=== PATIENT | female | born 1985 | race Caucasian/White ===

== ENCOUNTER 2019-06-26 05:31 | Inpatient (IN) | payer OTHER ==
[2019-06-26] MEDS ORDERED: AMPICILLIN/NS 2 GM/100 ML 2 GM/100 ML BAG IV ONE (07:07)
[2019-06-26] MEDS ORDERED: SUBLIMAZE IV PRN ×2 (07:12→08:51)
[2019-06-26] MEDS ORDERED: STADOL IV PRN (07:12)
[2019-06-26 07:30] LABS: Hematocrit 42.5 % (30.3-42.9); Hemoglobin 13.9 gm/dl (10.1-14.3); Mean Corpuscular HGB Conc 33 % (30-34); Mean Corpuscular Volume 86 fl (79-97); Platelet Count 117 K/mm3 (140-440); Red Blood Count 4.96 M/mm3 (3.65-5.03); Red Cell Distribution Width 17.4 % (13.2-15.2)
[2019-06-26] MEDS ORDERED: LACTATED RINGERS 1,000 ML IV SCH ×2 (08:00→09:00)
[2019-06-26] MEDS ORDERED: BRETHINE SUB-Q PRN (08:51)
[2019-06-26] MEDS ORDERED: XYLOCAINE 2% INFILTRATI ONE (08:51)
[2019-06-26] MEDS ORDERED: PITOCin/NS 20 UNIT/1000ML DRIP 20 UNITS/1,000 ML BAG IV SCH (09:00)
--- NOTE | 2019-06-26 09:14 | History and Physical Report ---
History of Present Illness Date of examination: 06/26/19 Date of admission: 06/26/2019 Chief complaint: Active labor History of present illness: 33 yo, @ 39.4 wks gestation. Initated care with [facility] at 7.6 wks. She was co-managed by [facility] secondary to hypothyroidism. Her was complicated by hypothyroidism and anemia. Presented to [facility] with reports of regular painful ctxs for past several hours. Reports + FM, denies VB or LOF. She desires BTL, consent was signed on 03/29/19. Labs: O+, antibody negative; Rubella immune; VDRL non-reactive; HBsAg negative; HIV negative; GC/Chlamydia/Trich negative; Varicella immune; HSVII negative; 1 hr gtt - 118; GBS positive Past History Past Medical History: other (Hypothyroidism) Past Surgical History: no surgical history Family/Genetic History: none Social history: , lives with family, full code. denies: smoking, alcohol abuse, prescription drug abuse, IV drug use - Obstetrical History Expected Date of Delivery: 06/29/19 Actual Gestation: 39 Week(s) 4 Day(s) : 3 Para: 2 Hx # Term Pregnancies: 2 Number of Pregnancies: 0 Spontaneous Abortions: 0 Induced : 0 Number of Living Children: 2 #1 Infant Gender: Female year: Method of Delivery: Vaginal Complications: none #2 Infant Gender: Female year: Method of Delivery: Vaginal Complications: none Medications and Allergies Allergies Allergy/AdvReac Type Severity Reaction Status Date / Time No Known Allergies Allergy Verified 03/30/15 04:09 Home Medications Medication Instructions Recorded Confirmed Last Taken Type Levothyroxine [Synthroid] 75 mcg PO QAM 03/31/15 03/31/15 03/30/15 06:00 History 0.75mgs Ibuprofen [Motrin 600 MG tab] 600 mg PO Q6HR PRN #30 tablet 04/01/15 Unknown Rx Docusate Sodium [Colace] 100 mg PO BID PRN #30 capsule 10/14/16 Unknown Rx Ferrous Sulfate [Feosol 325 MG tab] 325 mg PO TID PRN #60 tablet 10/14/16 Unknown Rx Ibuprofen [Motrin 600 MG tab] 600 mg PO Q6H PRN #30 tablet 10/14/16 Unknown Rx Active Meds: Active Medications Butorphanol Tartrate (Stadol) 2 mg IV Q2H PRN PRN Reason: Labor Pain Stop: 06/26/19 23:59 Ephedrine Sulfate (Ephedrine Sulfate) 10 mg IV Q2M PRN PRN Reason: Hypotension Fentanyl (Sublimaze) 100 mcg IV Q2H PRN PRN Reason: Labor Pain Ampicillin Sodium (Ampicillin/Ns 1 Gm/50 Ml) 1 gm in 50 mls @ 100 mls/hr IV Q4HR JUDSON; Protocol Oxytocin/Sodium Chloride (Pitocin/Ns 20 Unit/1000ml Drip) 20 units in 1,000 mls @ 125 mls/hr IV DIRECT JUDSON Lactated Ringer's (Lactated Ringers) 1,000 mls @ 125 mls/hr IV DIRECT JUDSON Mineral Oil (Mineral Oil) 30 ml PO QHS PRN PRN Reason: Constipation Terbutaline Sulfate (Brethine) 0.25 mg SUB-Q ONCE PRN PRN Reason: Hyperstimulation/Hypertonicity Review of Systems All systems: negative Genitourinary: contractions (painful and regular) - Vital Signs Vital signs: Vital Signs Pulse BP 85 110/72 06/26/19 05:47 06/26/19 05:47 Temp Pulse Resp BP Pulse Ox 85 98/73 06/26/19 07:20 06/26/19 07:20 - Physical Exam Breasts: Positive: deferred Cardiovascular: Regular rate Lungs: Positive: Normal air movement Abdomen: Positive: other (gravid) Genitourinary (Female): Positive: normal external genitalia, normal perenium Uterus: Positive: other (S=D) Extremities: Positive: normal Deep Tendon Reflex Grade: Normal +2 - Obstetrical FHR: category 1 Uterine Contraction Monitor Mode: External Cervical Dilatation: 8 (with bulging bag) Cervical Effacement Percentage: 90 station: -2 Uterine Contraction Frequency (min): 3-4 Uterine Contraction Pattern: Regular Uterine Tone Measurement Phase: Resting Uterine Contraction Intensity: Strong/Firm Results Result Diagrams: 06/26/19 05:30 Abnormal lab results 06/26/19 Range/Units 05:30 RDW 17.4 H (13.2-15.2) % Plt Count 117 L (140-440) K/mm3 All other labs normal. Assessment and Plan - Patient Problems (1) 39 weeks gestation of Current Visit: Yes Status: Acute (2) Active labor at term Current Visit: Yes Status: Acute Plan to address problem: Admit to L & D Expectant management Pain medication as desired Anticipate (3) Hypothyroidism Current Visit: Yes Status: Acute (4) Group beta Strep positive Current Visit: Yes Status: Acute Plan to address problem: GBS prophylaxis per protocol
[2019-06-26] MEDS ORDERED: NARCAN 2 MG/2 ML IV PRN (10:42)
--- NOTE | 2019-06-26 10:44 | Anesthesia Consultation ---
Anesthesia Consult and Med Hx Date of service: 06/26/19 - Airway Anesthetic Teeth Evaluation: Good ROM Head & Neck: Adequate Mental/Hyoid Distance: Adequate Mallampati Class: Class II Intubation Access Assessment: Probably Good - Pulmonary Exam CTA: Yes - Cardiac Exam Cardiac Exam: RRR - Pre-Operative Health Status ASA Pre-Surgery Classification: ASA2 Proposed Anesthetic Plan: Epidural - Pulmonary Hx Smoking: No Hx Asthma: No Hx Respiratory Symptoms: No SOB: No COPD: No Home Oxygen Therapy: No Hx Pneumonia: No Hx Sleep Apnea: No - Cardiovascular System Hx Hypertension: No Hx Coronary Artery Disease: No Hx Heart Attack/AMI: No Hx Angina: No Hx Percutaneous Transluminal Coronary Angioplasty (PTCA): No Hx Cardia Arrhythmia: No Hx Pacemaker: No Hx Internal Defibrillator: No Hx Valvular Heart Disease: No Hx Heart Murmur: No Hx Peripheral Vascular Disease: No - Central Nervous System Hx Neuromuscular Disorder: No Hx Seizures: No CVA: No Hx Back Pain: No Hx Psychiatric Problems: No - Gastrointestinal Hx Ulcer: No Hx Gastroesophageal Reflux Disease: No - Endocrine Hx Renal Disease: No Hx End Stage Renal Disease: No Hx Cirrhosis: No Hx Liver Disease: No Hx Insulin Dependent Diabetes: No Hx Non-Insulin Dependent Diabetes: No Hx Thyroid Disease: No Hx Hypothyroidism: No Hx Hyperthyroidism: No - Hematic Hx Anemia: No Hx Sickle Cell Disease: No - Other Systems Hx Alcohol Use: No Hx Substance Use: No Hx Cancer: No Hx Obesity: Yes (35.8)
[2019-06-26] MEDS ORDERED: fentaNYL-BUPIV 2 MCG/ML-0.125% 200 MCG/100 ML BAG EPIDURAL SCH (11:00)
[2019-06-26] MEDS: AMPICILLIN/NS 1 GM/50 ML 1 GM/50 ML BAG IV SCH ×2 (11:15→16:57)
[2019-06-26] MEDS ORDERED: LIDOCAINE 1.5%/EPI 1:200,000 INFILTRATI ONE (12:26)
--- NOTE | 2019-06-26 14:11 | Event Note ---
Date: 06/26/19 (1400) Pt resting comfortably with epidural. Ctxs have spaced out to approx q 4-7 mins. AROM of meconium stained fluid @ 1400, tolerated well. Will start Pitocin @ 2 mu/min, increase by 2 mu/min q 30 mins.
[2019-06-26] MEDS ORDERED: PITOCin/NS 30 UNIT/500ML 30,000 MILLIUNITS/500 ML BAG IV ONE (14:12)
[2019-06-26] MEDS ORDERED: MARCAINE 0.25% INFILTRATI ONE (15:13)
[2019-06-26] MEDS ORDERED: ZOFRAN IV PRN ×2 (16:41→20:01)
[2019-06-26] MEDS ORDERED: GENTAMICIN/NS 80 MG/100 ML 100 ML IV SCH (20:00)
[2019-06-26] MEDS ORDERED: TUCKS PAD TP PRN (20:01)
[2019-06-26] MEDS ORDERED: PHENERGAN PO PRN (20:01)
[2019-06-26] MEDS ORDERED: LANSINOH TP PRN (20:01)
[2019-06-26] MEDS ORDERED: PERCOCET 5/325 PO PRN (20:01)
[2019-06-26] MEDS ORDERED: DULCOLAX PR PRN (20:01)
[2019-06-26] MEDS ORDERED: MILK OF MAGNESIA PO PRN (20:01)
[2019-06-26] MEDS ORDERED: BENADRYL PO PRN (20:01)
--- NOTE | 2019-06-26 20:11 | Procedure Note ---
OB Delivery Note - Delivery Date of Delivery: 06/26/19 (1935) Surgeon: MARISOL NAVA (CNM) Estimated blood loss: 200cc - Vaginal Delivery position: OA (JOSE) Intrapartum events: meconium Delivery induction: none Delivery augmentation: rupture of membranes, pitocin Delivery monitor: external FHT, external uterine Route of delivery: Delivery placenta: spontaneous (1950) Delivery cord: nuchal cord (x1, manually reduced on perineum) Episiotomy: none Delivery laceration: none Anesthesia: epidural Delivery comments: of viable quiet active infant, placed immediately to maternal abdomen. NICU arrived to room 30 secs after delivery to assess secondary to meconium stained fluid. Cord double clamped and cut after 1.5 mins, and handed over to NICU team for further evaluation. Placenta spontaneously delivered, larry, disposed per hospital policy. Uterus firm at U-2, hemostasis maintained. Perineum intact. NICU completed evaluation, and handed baby over to FOB. Mother and baby stable and safe. - Infant A at 1 minute: 8 at 5 minutes: 9 Infant Gender: Female (Weight: 4341 gms (9 lbs 9 ozs) 20.5 inches)
[2019-06-26] MEDS: IBUPROFEN PO SCH (20:22)
[2019-06-26] MEDS ORDERED: GENTAMICIN/NS 120MG/100ML 120 MG/100 ML BAG IV SCH (21:00)
[2019-06-26] MEDS ORDERED: SODIUM CHLORIDE FLUSH SYRINGE 10 ML IV NR (21:00)
[2019-06-26] MEDS ORDERED: MINERAL OIL PO PRN (22:00)
[2019-06-26] MEDS ORDERED: GENTAMICIN IV SCH (22:00)
[2019-06-27] MEDS: IBUPROFEN PO SCH ×3 (02:05→16:29)
[2019-06-27] MEDS: SYNTHROID PO SCH (05:51)
[2019-06-27 08:38] LABS: Hemoglobin 13.4 gm/dl (10.1-14.3)
[2019-06-27] MEDS: PRENATAL VITAMIN PO SCH (10:28)
[2019-06-27] MEDS: FEOSOL PO SCH (10:28)
--- NOTE | 2019-06-27 10:30 | Progress Note ---
Assessment and Plan A: PP Day #1 Hypothyroidism Right leg weakness P: Follow Routine Orders Anesthesia Consult Subjective - Subjective Date of service: 06/27/19 Patient reports: appetite normal, voiding normally, pain well controlled, flatus, ambulating normally, other (Right leg feels weak and numb) : doing well Objective - Vital Signs Latest vital signs: Vital Signs Temp Pulse Resp BP BP Pulse Ox 06/27/19 08:32 97.7 F 57 L 18 105/62 99 06/27/19 04:25 71 L 06/27/19 04:14 97.5 F L 56 L 20 113/69 98 06/26/19 23:45 98 06/26/19 23:05 98.3 F 63 18 101/48 06/26/19 22:18 68 101/51 06/26/19 22:03 80 101/59 06/26/19 22:00 98.9 F 06/26/19 21:48 58 L 113/62 06/26/19 21:43 16 06/26/19 21:34 72 116/63 06/26/19 21:22 15 06/26/19 21:18 88 108/59 06/26/19 21:03 85 131/64 06/26/19 21:00 98.8 F 06/26/19 20:48 86 127/66 06/26/19 20:36 95 H 99 06/26/19 20:33 71 132/72 06/26/19 20:31 65 100 06/26/19 20:26 81 98 06/26/19 20:22 16 06/26/19 20:21 78 98 06/26/19 20:16 92 H 99 06/26/19 20:11 82 99 06/26/19 20:06 83 99 06/26/19 20:05 86 130/82 06/26/19 20:01 82 99 06/26/19 20:00 99.3 F 06/26/19 19:52 78 120/79 06/26/19 19:30 99.4 F 06/26/19 19:05 97 H 119/63 06/26/19 18:06 95 H 111/74 06/26/19 18:05 99.2 F 94 H 90 06/26/19 18:03 91 H 98 06/26/19 17:57 99 H 97 06/26/19 17:53 90 06/26/19 17:52 103 H 96 06/26/19 17:47 108 H 87 06/26/19 17:46 92 H 84 06/26/19 17:42 135 H 99 06/26/19 17:37 94 H 100 06/26/19 17:32 95 H 100 06/26/19 17:27 89 100 06/26/19 17:22 103 H 100 06/26/19 17:17 102 H 100 06/26/19 17:12 95 H 100 06/26/19 17:07 95 H 100 06/26/19 17:05 98 H 119/85 06/26/19 17:02 99 H 100 06/26/19 16:57 97 H 100 06/26/19 16:52 107 H 100 06/26/19 16:47 105 H 100 06/26/19 16:42 106 H 99 06/26/19 16:37 113 H 100 06/26/19 16:32 84 100 06/26/19 16:27 84 100 06/26/19 16:22 96 H 100 06/26/19 16:17 90 100 06/26/19 16:12 99 H 100 06/26/19 16:07 100 H 99 06/26/19 16:06 100 H 113/76 06/26/19 16:02 97 H 100 06/26/19 15:57 95 H 100 06/26/19 15:52 88 100 06/26/19 15:47 84 100 06/26/19 15:42 83 100 06/26/19 15:37 86 100 06/26/19 15:32 82 100 06/26/19 15:27 84 100 06/26/19 15:22 87 100 06/26/19 15:17 85 100 06/26/19 15:15 81 105/63 06/26/19 15:12 82 100 06/26/19 15:07 79 100 06/26/19 15:06 80 109/65 06/26/19 15:02 76 100 06/26/19 14:57 90 98 06/26/19 14:52 91 H 99 06/26/19 14:47 79 99 06/26/19 14:42 78 99 06/26/19 14:37 89 98 06/26/19 14:32 87 98 06/26/19 14:27 78 98 06/26/19 14:22 81 98 06/26/19 14:17 78 99 06/26/19 14:12 80 98 06/26/19 14:07 83 98 06/26/19 14:04 89 90 06/26/19 14:02 89 99 06/26/19 14:01 76 110/69 06/26/19 13:59 82 107/69 06/26/19 13:57 66 110/66 99 06/26/19 13:55 71 106/68 06/26/19 13:53 71 113/71 06/26/19 13:52 69 99 06/26/19 13:51 83 111/66 06/26/19 13:49 91 H 111/65 06/26/19 13:47 75 114/68 98 06/26/19 13:45 67 114/71 06/26/19 13:43 66 110/67 06/26/19 13:42 66 99 06/26/19 13:41 66 109/69 06/26/19 13:39 80 108/69 06/26/19 13:37 65 108/72 99 06/26/19 13:35 68 109/71 06/26/19 13:33 73 110/70 06/26/19 13:32 83 100 06/26/19 13:31 74 109/69 06/26/19 13:29 79 113/77 06/26/19 13:27 77 109/70 100 06/26/19 13:25 82 105/66 06/26/19 13:23 75 108/66 06/26/19 13:22 87 100 06/26/19 13:21 76 106/66 06/26/19 13:19 80 110/64 06/26/19 13:17 79 108/71 98 06/26/19 13:15 100 H 106/72 06/26/19 13:13 85 106/71 06/26/19 13:12 69 100 06/26/19 13:11 72 105/69 06/26/19 13:09 80 99/67 06/26/19 13:07 74 100/62 100 06/26/19 13:05 71 101/58 06/26/19 13:03 101 H 99/56 06/26/19 13:02 98 H 100 06/26/19 13:01 87 96/56 06/26/19 12:59 69 98/55 06/26/19 12:57 82 97/53 99 06/26/19 12:55 73 105/58 06/26/19 12:54 71 114/57 06/26/19 12:52 89 92 06/26/19 12:51 68 121/78 06/26/19 12:49 74 126/77 06/26/19 12:47 65 128/76 91 06/26/19 12:46 92 06/26/19 12:45 86 130/75 06/26/19 12:44 81 126/73 06/26/19 12:42 81 91 06/26/19 12:41 87 111/69 06/26/19 12:39 83 115/72 94 06/26/19 12:37 96 H 96 Intake and Output 06/26/19 06/27/19 06/27/19 22:59 06:59 14:59 Intake Total 312.733 120 Output Total 950 700 Balance -637.267 -700 120 Intake: IV 312.733 Lactated Ringers 1,000 ml 300 @ 125 mls/hr IV DIRECT JUDSON Rx#:[id number] PITOCin/NS 30 UNIT/500ML 12.733 30,000 milliunits In 500 ml @ 2 MILLIUNITS/MIN 2 mls/hr IV DIRECT ONE Rx#:[id number] Oral 120 Output: Urine 950 700 Indwelling Catheter 950 Void 700 Other: Total, Intake Amount 120 Total, Output Amount 300 700 # Voids Void 1 Estimated Blood Loss 200 - Exam Breasts: Present: normal Cardiovascular: Present: Regular rate Lungs: Present: Clear to auscultation, Normal air movement Abdomen: Present: normal appearance, soft, normal bowel sounds Uterus: Present: normal, firm, fundal height below umbilicus Extremities: Present: normal
[2019-06-28] MEDS: IBUPROFEN PO SCH ×5 (00:35→21:51)
[2019-06-28] MEDS: SYNTHROID PO SCH (05:18)
--- NOTE | 2019-06-28 10:04 | Progress Note ---
Assessment and Plan A: PPD#2 s/p Stable P: Routine PP orders Discharge home today Subjective - Subjective Date of service: 06/28/19 Principal diagnosis: PPD#2 s/p Patient reports: appetite normal, voiding normally, pain well controlled, flatus, ambulating normally Staples: doing well (Under fina lights) Objective - Vital Signs Latest vital signs: Vital Signs Temp Pulse Resp BP Pulse Ox 06/28/19 07:33 97.6 F 60 16 108/77 99 06/28/19 00:43 97.9 F 63 20 106/71 99 06/27/19 17:06 98.2 F 63 18 106/69 99 Intake and Output 06/27/19 06/28/19 06/28/19 23:59 07:59 15:59 Intake Total 1200 240 Balance 1200 240 Intake: Oral 480 240 Intake, Free Water 720 Other: Total, Intake Amount 480 240 # Voids Void 2 1 - Exam Breasts: Present: normal Cardiovascular: Present: Regular rate, Normal S1, Normal S2, No murmurs Lungs: Present: Clear to auscultation, Normal air movement Abdomen: Present: normal appearance, soft, normal bowel sounds. Absent: distention Vulva: both: normal Uterus: Present: firm, fundal height at umbilicus Extremities: Present: normal Deep Tendon Reflex Grade: Normal +2
--- NOTE | 2019-06-28 10:06 | Discharge Summary ---
Providers - Providers Date of Admission: 06/26/19 09:25 Date of discharge: 06/28/19 Attending physician: JAXSON ALBARADO MD 06/27/19 10:56 Consult to Anesthesiology [CONS] Routine Consulting Provider: ARMIN ANESTHESIA AUGUSTA DAMIAN Reason For Exam: right leg weakness Primary care physician: JAXSON ALBARADO MD Hospitalization Reason for admission: IUP at term Delivery: Procedure details: See H&P and delivery note Episiotomy: none Laceration: none Other procedures: none complications: none Discharge diagnosis: IUP at term delivered [place] baby: female Condition at discharge: Good Disposition: DC-01 TO HOME OR SELFCARE Plan - Provider Discharge Summary Activity: routine, no sex for 6 weeks, no heavy lifting 4 weeks, no strenuous exercise Diet: routine Instructions: routine Additional instructions: [] Smoking cessation referral if applicable(refer to patient education folder for contact #) [] Refer to [facility]'s [facility] Booklet Call your doctor immediately for: * Fever > 100.5 * Heavy vaginal bleeding ( >1 pad per hour) * Severe persistent headache * Shortness of breath * Reddened, hot, painful area to leg or breast * Drainage or odor from incision. * Keep incision clean and dry at all times and follow doctor's instructions regarding bathing/showering - Follow up plan Follow up: JAXSON ALBARADO MD [Primary Care Provider] - 6 Weeks
[2019-06-28] MEDS: FEOSOL PO SCH (10:09)
[2019-06-28] MEDS: PRENATAL VITAMIN PO SCH (10:09)
[2019-06-29 03:40] VITALS: BP 116/52
== END 2019-06-28 22:50 | disposition home or self-care (01) | DRG 807 ==
LOC: TRG 05:31 → LD 06:50 → TRG 09:25 → OB 22:34
PROVIDERS: ADMIT Obstetrics & Gynecology; ATTEND Obstetrics & Gynecology
PROC: 10E0XZZ Delivery of Products of Conception, External Approach (ICD-10-PCS; principal; 2019-06-26)
PROC: 3E0R3BZ Introduction of Anesthetic Agent into Spinal Canal, Percutaneous Approach (ICD-10-PCS; 2019-06-26)
PROC: 00HU33Z Insertion of Infusion Device into Spinal Canal, Percutaneous Approach (ICD-10-PCS; 2019-06-26)
PROC: 10907ZC Drainage of Amniotic Fluid, Therapeutic from Products of Conception, Via Natural or Artificial Opening (ICD-10-PCS; 2019-06-26)
DX: O77.0 Labor and delivery complicated by meconium in amniotic fluid (principal); Z37.0 Single live birth; O99.284 Endocrine, nutritional and metabolic diseases complicating childbirth; E03.9 Hypothyroidism, unspecified; O69.1XX0 Labor and delivery complicated by cord around neck, with compression, not applicable or unspecified; O99.214 Obesity complicating childbirth; E66.9 Obesity, unspecified; O99.824 Streptococcus B carrier state complicating childbirth; O99.02 Anemia complicating childbirth; Z79.899 Other long term (current) drug therapy; Z3A.39 39 weeks gestation of pregnancy
CPT/HCPCS: 36415; 85014; 85018; 85027; 86592; 86850; 86900; 86901; G0378; A6250; J0290; J0595; J1580; J2405; J2590; J3010; J7120

== ENCOUNTER 2019-09-10 07:26 | Day surgery (SDC) | payer OTHER ==
[2019-09-10] MEDS ORDERED: fentaNYL 100 MCG/2 ML INJ ONE (07:34)
[2019-09-10] MEDS ORDERED: LIDOCAINE MPF (2%) 20 MG/1 ML VIAL 5 ML ONE (07:35)
[2019-09-10] MEDS ORDERED: PROPOFOL 200 MG/20 ML VIAL IV ONE (07:35)
[2019-09-10] MEDS ORDERED: ROCURONIUM 50 MG/5 ML INJ IV ONE (07:35)
[2019-09-10] MEDS ORDERED: LACTATED RINGERS 1,000 ML IV SCH (07:55)
--- NOTE | 2019-09-10 08:03 | Anesthesia Consultation ---
Anesthesia Consult and Med Hx Date of service: 09/10/19 - Airway Anesthetic Teeth Evaluation: Good ROM Head & Neck: Adequate Mental/Hyoid Distance: Adequate Mallampati Class: Class II Intubation Access Assessment: Probably Good - Pulmonary Exam CTA: Yes - Cardiac Exam Cardiac Exam: RRR - Pre-Operative Health Status ASA Pre-Surgery Classification: ASA2 Proposed Anesthetic Plan: General (Patient denied previous anesthesia related complications) - Pulmonary Hx Smoking: No Hx Asthma: No Hx Respiratory Symptoms: No SOB: No COPD: No Hx Pneumonia: No Hx Sleep Apnea: No - Cardiovascular System Hx Hypertension: No Hx Coronary Artery Disease: No Hx Heart Attack/AMI: No Hx Angina: No Hx Percutaneous Transluminal Coronary Angioplasty (PTCA): No Hx Cardia Arrhythmia: No Hx Pacemaker: No Hx Internal Defibrillator: No Hx Valvular Heart Disease: No Hx Heart Murmur: No Hx Peripheral Vascular Disease: No - Central Nervous System Hx Neuromuscular Disorder: No Hx Seizures: No CVA: No Hx Back Pain: No Hx Psychiatric Problems: No - Gastrointestinal Hx Ulcer: No Hx Gastroesophageal Reflux Disease: No - Endocrine Hx Renal Disease: No Hx End Stage Renal Disease: No Hx Cirrhosis: No Hx Liver Disease: No Hx Insulin Dependent Diabetes: No Hx Non-Insulin Dependent Diabetes: No Hx Thyroid Disease: No Hx Hypothyroidism: Yes Hx Hyperthyroidism: No - Hematic Hx Anemia: No Hx Sickle Cell Disease: No - Other Systems Hx Alcohol Use: No Hx Substance Use: No Hx Cancer: No Hx Obesity: Yes (35.8)
--- NOTE | 2019-09-10 08:03 | Anesthesia Day of Surgery ---
Anesthesia Day of Surgery - Day of Surgery Patient Examined: Yes Patient H&P Reviewed: Yes Patient is NPO: Yes
[2019-09-10] MEDS ORDERED: ceFAZolin/STERILE WATER 2 GM/20 ML SYRINGE IV NR (08:20)
[2019-09-10] MEDS ORDERED: LACTATED RINGERS 1,000 ML ONE (08:31)
--- NOTE | 2019-09-10 08:41 | History and Physical Report ---
History of Present Illness Date of examination: 09/10/19 Date of admission: Same Day Surgery Chief complaint: Multiparty desires permanent surgical sterilization History of present illness: 33yo , multiparty desires permanent surgical sterilization Informed consent obtained risks,benefits of procedure, possible intraoperative and postoperative complications as well as alternatives to permanent surgical sterilization reviewed in detail. Patient admits to a desire to proceed with procedure. Surgical and Blood Consent signed in preop area. Past History Past Medical History: thyroid disease (hypothyroid) Past Surgical History: no surgical history CENA History: denies: abnormal PAP smear, cancer, chlamydia, herpes, HIV, trichomonas Family/Genetic History: none Social history: no significant social history, , lives with family - Obstetrical History : 3 Para: 3 Medications and Allergies Allergies Allergy/AdvReac Type Severity Reaction Status Date / Time No Known Allergies Allergy Verified 09/06/19 17:20 Home Medications Medication Instructions Recorded Confirmed Last Taken Type Levothyroxine [Synthroid] 125 mcg PO QAM 09/06/19 09/06/19 Unknown History Review of Systems All systems: negative (10 point review of systems negative) - Vital Signs Vital signs: Vital signs reviewed in preop and WNL Results All other labs normal. 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 Consents on chart CBC,coags, type and screen Miroslava Kennedy MD
[2019-09-10] MEDS ORDERED: dexAMETHasone 20 MG/5 ML VIAL ONE (08:51)
[2019-09-10] MEDS ORDERED: ONDANSETRON 4 MG/2 ML INJ ONE (08:52)
[2019-09-10 08:59] LABS: Basophils % (Auto) 0.7 % (0.0-1.8); Eosinophils # (Auto) 0.2 K/mm3 (0.0-0.4); Eosinophils % (Auto) 4.1 % (0.0-4.3); Hematocrit 39.7 % (30.3-42.9); Hemoglobin 13.3 gm/dl (10.1-14.3); Lymphocytes # (Auto) 1.8 K/mm3 (1.2-5.4); Lymphocytes % (Auto) 32.7 % (13.4-35.0); Mean Corpuscular HGB Conc 34 % (30-34); Mean Corpuscular Volume 84 fl (79-97); Monocytes # (Auto) 0.4 K/mm3 (0.0-0.8); Monocytes % (Auto) 6.6 % (0.0-7.3); Platelet Count 157 K/mm3 (140-440); Red Blood Count 4.71 M/mm3 (3.65-5.03)
[2019-09-10] MEDS ORDERED: PHENYLEPHRINE/NS 1,000 MCG/10 ML SYRINGE (OR USE) IV ONE (09:00)
[2019-09-10 09:20] LABS: INR 1.02 (0.87-1.13); Partial Thromboplastin Time 30.9 Sec. (24.2-36.6)
[2019-09-10] MEDS ORDERED: NEOSTIGMINE 10MG/10 ML INJ MDV ONE (09:26)
[2019-09-10] MEDS ORDERED: GLYCOPYRROLATE 0.4 MG/2 ML INJ ONE (09:26)
[2019-09-10] MEDS ORDERED: SODIUM CHLORIDE 0.9% IRR 1,500 ML BOTTLE IR ONE (09:43)
[2019-09-10] MEDS ORDERED: FERRIC SUBSULFATE TOPICAL SOLN 8 ML TP ONE (09:49)
--- NOTE | 2019-09-10 10:06 | Post Operative Note ---
Pre-op diagnosis: Multiparity, desiring permanat surgical sterilization Post-op diagnosis: same Findings: normal uterus, tubes and ovaries bilaterally cervical laceration Procedure: operative Laparascopic bilateral tubal ligation via fulguration Surgeon: JAXSON ALBARADO Estimated blood loss: minimal (200ml) Pathology: none Condition: stable Disposition: PACU
[2019-09-10] MEDS ORDERED: KETOROLAC 30 MG/1 ML INJ ONE (10:08)
[2019-09-10] MEDS ORDERED: HYDROmorphone 1 MG/1 ML INJ IM PRN (11:17)
[2019-09-10 12:25] VITALS: BP 102/63
--- NOTE | 2019-09-10 12:41 | Post Anesthesia Evaluation ---
- Post Anesthesia Evaluation Patient Participated: Yes Airway Patent: Yes Stable Respiratory Function: Yes Nausea/Vomiting: No Temp > 96.8F: Yes Pain Manageable: Yes Adequeate Hydration: Yes Anesthesia Complications: No
--- NOTE | 2019-09-12 10:06 | Operative Report ---
Operative Report Operative Report: Date of Surgery: 09/10/2019 Preoperative Diagnosis: Multiparty, desires Permanent Surgical Sterilization Postoperative Diagnosis: same, cervical laceration(repaired) Procedure: Operative Laparoscopic Bilateral Tubal Ligation via fulguration with Kleppinger Bipolar Forceps, repair of cervical laceration Surgeon: Dr Maria Alejandra Kennedy Complications: 2cm left lateral cervical laceration noted at the completion of the procedure. EBL 200ml IV fluids: 900ml Urine Output: 275ml Anesthesia: GET Findings: normal uterus,fallopian tubes and ovaries bilaterally Procedure: Patient was consented in the preoperative holding area. Informed consent obtained.Risks,benefits and possible complications as well as con traceptive alternatives reviewed. She was taken to the OR where she was received excellent general endotracheal anesthesia. She was then placed in the dorsal lithotomy position, prepped and draped in a sterile fashion. A time out was verified. Exam under anesthesia revealed a normal sized uterus, midline, with no adnexal masses. a de los santos catheter was placed in the bladder atraumatically with adequate clear urine output noted. A speculum was placed in the vagina, the cervix identified and a single toothed tenaculum placed on the anterior lip of the cervix. A Manuel uterine manipulator was placed without complication. Attention then turned to the abdomen. An infraumbilical incision was made, taken down to the fascia and then a 5mm port was placed atraumatically under direct visualization with the laparoscope. The abdomen was then insulfalted with CO2 gas to allow for excellent visualization of the abdominal and pelvic viscera. A second 5mm port was placed atraumatically in the left lower quadrant. The patient was placed in steep trendelenburg and attention turned to the reproductive anatomy. Normal uterus, fallopian tubes and ovaries bilaterally. The fallopian tubes were then desiccated in the proximal portion with Bipolar Kleppenger Forceps. Visual images obtained. Examination of the abdominal and pelvic anatomy revealed no trauma or injury to the bowel ,bladder or pelvis. The patient was then taken out of steep Trendelenburg and both ports removed aromatically. Excellent hemostasis confirmed from both port sites at the completion of the procedure. The infraumbilical incision fascia was closed with 0-Vicryl in the usual fashion. The skin closed with Monocryl and Dermabond applied. The lateral port was closed with a [id number] 0-Vicryl suture in the usual fashion and Dermabond applied. Appropriate dressings applied. Attention turned to the vaginal, the [place] manipulator and the single toothed tenaculum were removed atraumatically.The patient was noted to have a 2cm left cervical laceration which was repaired with 0-Vicyl with excellent hemostasis. Examination of the remainder of the vagina, cervix and parmetrial tissue revealed intact anatomy. The de los santos catheter removed with adequate clear urine output. The patient extubated and taken to recovery in stable condition. All sponge, needle and instrument counts correctx2. Disposition: Stable to PACU Leonard Camacho MD
== END 2019-09-10 07:27 | disposition home or self-care (01) ==
LOC: OR 07:26
PROVIDERS: ATTEND Obstetrics & Gynecology
DX: Z30.2 Encounter for sterilization (principal); S37.63XA Laceration of uterus, initial encounter; E66.9 Obesity, unspecified; E03.9 Hypothyroidism, unspecified; Z68.35 Body mass index [BMI] 35.0-35.9, adult; Z79.899 Other long term (current) drug therapy; Z88.8 Allergy status to other drugs, medicaments and biological substances; X58.XXXA Exposure to other specified factors, initial encounter; Y93.89 Activity, other specified; Y92.89 Other specified places as the place of occurrence of the external cause; Y99.8 Other external cause status
CPT/HCPCS: 36415; 57720; 58670; 81025; 85025; 85610; 85730; 86850; 86900; 86901; J0690; J1100; J1170; J1885; J2370; J2405; J2704; J2710; J3010; J7120